=== PATIENT | male | born 1950 | race Caucasian/White ===

== ENCOUNTER 2019-06-24 11:57 | Outpatient (CLI) | payer MEDICARE, SELFPAY | END 2019-06-24 11:58 | disposition home or self-care (01) | LOC: CT 12:01 | PROVIDERS: Family Provider Family Medicine | DX: S46.912A Strain of unspecified muscle, fascia and tendon at shoulder and upper arm level, left arm, initial encounter (principal) ==

== ENCOUNTER → 2021-02-14 11:26 | Outpatient (BNVA) | payer MEDICARE, SELFPAY | PROVIDERS: Family Provider Family Medicine; Visit Provider Nurse Practitioner Family | DX: I10 Essential (primary) hypertension (principal); N40.0 Benign prostatic hyperplasia without lower urinary tract symptoms; E78.2 Mixed hyperlipidemia; Z79.899 Other long term (current) drug therapy | CPT/HCPCS: 80053; 80061; 81003; 82306; 83036; 84443; 85025; G0103 ==

== ENCOUNTER 2021-03-06 09:29 | Outpatient (CLI) | payer MEDICARE, SELFPAY ==
--- NOTE | 2021-03-06 09:31 | CT_ITS ---
WS: [id number] CT HEAD NONCONTRAST HISTORY: R55 - Syncope and collapse TECHNIQUE: Contiguous axial imaging performed through the brain in 2.5 mm imaging. Bone and soft tiss ue windows. Sagittal and coronal reformats reviewed. All CT scans at [facility] use at least one of these dose optimization techniques: automated exposure control; mA and/or kV adjustment per pa tient size (includes targeted exams where dose is matched to clinical indication); or iterative recon struction. DLP: 829.85 mGy.cm COMPARISON: None available. No acute intracranial hemorrhage, midline shift or mass effect. Mild atrophy and minimal chronic microvascular ischemic changes. No sulcal effacement. Ventricles: Normal size with no hydrocephalus. Paranasal sinuses: As visualized are clear. Mastoid air cells: Well pneumatized. Calvarium and scalp: Skull is intact with no soft tissue edema or swelling. CT/CT head wo con* [id number] IMPRESSION: 1. No acute intracranial hemorrhage or edema. 2. Very minimal atrophy and chronic microvascular ischemic disease.
--- NOTE | 2021-03-06 11:45 | USCV_ITS ---
Ethan Pearson Age: 70 Gender: M : 1950 Exam Date: 03/06/2021 09:46 Ordering Phys: Scotty Palomares MD Technologist: Keisha Khalil Exam Location: [facility] [place] Indication: SYNCOPE AND COLLAPSE Risk Factors: Previous Vascular Surgery: Right Brachial BP: / Left Brachial BP: / Right Left Velocity (cm/s) Spectral Plaque Velocity (cm/s) Spectral Plaque Syst/Diast Broadening Syst/Diast Broadening 109.20/19.80 Prox CCA 139.60/ 34.50 117.80/24.80 Mid CCA 133.30/ 32.90 104.00/26.00 Distal CCA 118.00/ 27.60 81.10/ 16.60 Prox ICA 91.50 / 30.20 91.20/ 16.40 Mid ICA 110.00/ 32.00 94.80/ 22.10 Distal ICA 100.40/ 38.40 98.00 ECA 108.10 0.80 ICA/CCA 0.82 Antegrade Vertebral Antegrade 46.70/ 17.10 cm/s 55.50/ 18.30 cm/s Tri Subclavian Tri 90.30 135.0 0 FINDINGS Comparison: none available. No significant elevation of systolic or diastolic velocities. Waveforms are normal. Minimal calcified plaque and intimal thickening identified. Antegrade vertebral arteries. CONCLUSIONS Bilateral ICA stenosis less than 50%. Mild carotid atherosclerosis. Dr. Shama Duron DO (Electronically Signed) Final Date: 06 March 2021 13:12 S
== END 2021-03-06 09:30 | disposition home or self-care (01) ==
LOC: CT 09:30
PROVIDERS: PCP Family Medicine; Visit Provider Family Medicine
DX: R55 Syncope and collapse (principal); I65.23 Occlusion and stenosis of bilateral carotid arteries; I67.82 Cerebral ischemia
CPT/HCPCS: 70450; 93880

== ENCOUNTER → 2021-03-20 09:15 | Outpatient (BNVA) | payer MEDICARE, SELFPAY | PROVIDERS: PCP Family Medicine; Visit Provider Family Medicine | DX: Z01.812 Encounter for preprocedural laboratory examination (principal); R55 Syncope and collapse; Z12.11 Encounter for screening for malignant neoplasm of colon; I25.10 Atherosclerotic heart disease of native coronary artery without angina pectoris; R07.9 Chest pain, unspecified; Z20.822 Contact with and (suspected) exposure to COVID-19 | CPT/HCPCS: 87635 ==

== ENCOUNTER → 2021-04-04 11:15 | Outpatient (BNVA) | payer MEDICARE, SELFPAY | PROVIDERS: PCP Family Medicine; Visit Provider Internal Medicine Cardiovascular Disease | DX: I31.9 Disease of pericardium, unspecified (principal); R07.9 Chest pain, unspecified; R06.02 Shortness of breath; I50.33 Acute on chronic diastolic (congestive) heart failure | CPT/HCPCS: 80048; 83880; 84484 ==

== ENCOUNTER 2021-04-05 08:24 | Outpatient (CLI) | payer MEDICARE, SELFPAY ==
[2021-04-05 09:25] VITALS: BMI 27.3
--- NOTE | 2021-04-05 09:34 | ECG_ITS ---
[facility] Test Date: 2021-04-05 Pat Name: Ethan Pearson Department: Room: Gender: Male Customer Service Advisor: Jovita Muro : 1950 Requested By: Scotty Palomares Order Number: [id number] Tatum MD: Fermín Pham M.D. Interpretive Statements NAME OF STUDY: LEXISCAN SESTAMIBI STRESS TEST INDICATION: [Chest Pain, ] Procedure: At the baseline, the blood pressure was 188/91 mmHg with a heart rate of 75 bpm. The electrocardiogram showed normal sinus rhythm, normal axis with normal ST and T's. The Lexiscan was infused over a period of 20 seconds. A total of 0.4 mg of Lexiscan was infused. The stress phase was continued for a total of 5 minutes. Heart rate was at the end of stress phase was 89 bpm and a blood pressure of 185/70 mmHg. The EKG at the peak infusion revealed since normal sinus rhythm with no significant ST-T wave changes. Sestamibi was injected 20 seconds after the Lexiscan infusion. Blood pressure at the end of recovery phase was 188/56 mmHg with a heart rate of 86 bpm. Conclusion: 1. Normal EKG response to Lexiscan infusion 2. No Lexiscan induced chest pain or cardiac arrhythmia. 3. Normal blood pressure and heart rate response. 4. Sestamibi/sestamibi perfusion scan pending; see separate report. Electronically Signed On 04-29-2021 10:50:50 DIRECTOR OF CONSULTING SERVICES by Fermín Phma M.D. [id number]
--- NOTE | 2021-04-05 09:35 | NMCV_ITS ---
NM cass perf SPECT r/s* [id number] Ethan Pearson Age: 70 Gender: M : 1950 Exam Date: 04/05/2021 10:57 Ordering Phys: Scotty Palomares MD Technologist: KAYLAH Burrows Exam Location: [facility] Indications: CHEST PAIN STRESS TEST [facility] IMAGE PROTOCOL Rest/Stress 1 Lexiscan Day Radiopharmaceutical Dose (mCi) Administration Site Administered by Rest: Tc-99m 11.0 IV KAYLAH Burrows Sestamibi Stress:Tc-99m 32.6 IV KAYLAH Ramirez Sestamibi Rest: 05-Apr-2021 60 Discovery 630 Stress: 05-Apr-2021 30 Discovery 630 0.4mg Lexiscan. Images obtained in supine and prone position. SPECT RESULTS Technical Quality: Excellent Raw Data Analysis: Normal Image Corrections: No attenuation or motion correction applied Summed Stress Score: 1 Summed Rest Score: 1 Summed Difference Score: 1 PERFUSION FINDINGS SPECT images demonstrate homogeneous tracer distribution throughout the myocardium. FUNCTIONAL RESULTS (calculated via Gated SPECT) Stress Image LV EF (%): 87 Stress EDV (mL):75 TID: 0.95 Stress ESV (mL):10 FUNCTIONAL FINDINGS: There is normal left ventricular systolic function. IMPRESSIONS 1. Normal myocardial perfusion imaging with no evidence of ischemia 2. LV systolic function is normal Fermín Pham MD (Electronically Signed) Final Date: 05 April 2021 16:27 S
[2021-04-05] MEDS: regadenoson 0.4 Mg/5 ml Syringe IVP (11:59)
[2021-04-05 12:00] VITALS: PULSE 100
== END 2021-04-05 08:25 | disposition home or self-care (01) ==
LOC: CDL 08:28
PROVIDERS: PCP Family Medicine; Visit Provider Family Medicine
DX: R07.9 Chest pain, unspecified (principal); I25.10 Atherosclerotic heart disease of native coronary artery without angina pectoris
CPT/HCPCS: 78452; 93017; A9500; J2785

== ENCOUNTER 2021-04-26 07:55 | Outpatient (CLI) | payer MEDICARE, SELFPAY ==
--- NOTE | 2021-04-26 08:03 | USCV_ITS ---
Rk Pearsonard Age: 70 Gender: M : 1950 Exam Date: 04/26/2021 08:20 Ordering Phys: Claire Ignacio MD ([email or web address]) Technologist: Kaity Santoyo Exam Location: [facility] [place] Indication: CHEST PAIN BP: 146 / 66 HR: 68 Rhythm: Sinus Technical Quality: Good MEASUREMENTS (Male / Female) Normal Values 2D ECHO LV Diastolic Diameter PLAX 4.0 cm 4.2 - 5.9 / 3.9 - 5.3 cm LV Systolic Diameter PLAX 2.3 cm IVS Diastolic Thickness 1.6 cm 0.6 - 1.0 / 0.6 - 0.9 cm IVS Systolic Thickness 1.8 cm LVPW Diastolic Thickness 1.0 cm 0.6 - 1.0 / 0.6 - 0.9 cm LVPW Systolic Thickness 1.6 cm LVOT Diameter 2.0 cm LV Ejection Fraction 2D Teich 73.9 % LV Ejection Fraction MOD 2C 83.2 % LV Ejection Fraction 2C AL 84.6 % LA Diameter 2.6 cm LA Width 3.2 cm LA Height 4.6 cm RA Width 3.4 cm RA Height 4.3 cm Aorta at Sinotubular Diameter 2.9 cm DOPPLER AV Peak Velocity 126.0 cm/s LVOT Peak Velocity 97.0 cm/s AV Area Cont Eq vti 2.8 cm squared AV Area Cont Eq pk 2.4 cm squared MV Peak Velocity 111.0 cm/s MV Area PHT 3.4 cm squared Mitral E to A Ratio 0.8 MV E' Velocity 32.6 cm/s Mitral E to MV E' Ratio 9.9 Mitral E to LV E' Lateral Ratio 8.8 Mitral E to LV E' Septal Ratio 11.6 TR Peak Velocity 183.0 cm/s TR Peak Gradient 13.4 mmHg Right Atrial Pressure 3.0 mmHg Pulmonary Artery Systolic Pressu 16.4 mmHg PV Peak Velocity 91.0 cm/s RV Acceleration Time 0.1 s RV Ejection Time 0.3 s RV AcT/ET 0.4 FINDINGS Left Ventricle Normal left ventricular size and systolic function, EF 83 %. No regional wall motion abnormalities. Grade I/IV diastolic dysfunction (abnormal relaxation filling pattern), normal to mildly elevated filling pressures. Right Ventricle The right ventricle is normal in size and function. Right Atrium The right atrium is normal in size. Left Atrium The left atrium is normal in size. Mitral Valve Mild mitral valve regurgitation. Aortic Valve Minimally thickened aortic valve Tricuspid Valve Trace tricuspid valve regurgitation. Pulmonic Valve No gross abnormalities noted Pericardium Normal pericardium without effusion. Aorta Normal ascending aorta dimension. CONCLUSIONS Normal left ventricular size and systolic function, EF74 %. No regional wall motion abnormalities. Grade I/IV diastolic dysfunction (abnormal relaxation filling pattern), normal to mildly elevated filling pressures. Minimally thickened aortic valve. Trace tricuspid valve regurgitation. Mild mitral valve regurgitation. Pulmonary artery peak systolic pressure of 16 mmHg There is no pericardial effusion. There are no intracardiac masses. No previous study is available for comparison. Dr Claire Ignacio MD FAC (Electronically Signed) Final Date: 29 April 2021 09:09 S
== END 2021-04-26 07:56 | disposition home or self-care (01) ==
LOC: RAD 07:59
PROVIDERS: PCP Family Medicine; Visit Provider Family Medicine
DX: I25.10 Atherosclerotic heart disease of native coronary artery without angina pectoris (principal); R07.9 Chest pain, unspecified; I08.3 Combined rheumatic disorders of mitral, aortic and tricuspid valves
CPT/HCPCS: 93306

== ENCOUNTER → 2021-06-25 09:25 | Outpatient (BNVA) | payer SELFPAY | PROVIDERS: PCP Family Medicine; Visit Provider Family Medicine | DX: R53.81 Other malaise (principal); R06.02 Shortness of breath | CPT/HCPCS: 87400 ==

== ENCOUNTER → 2021-07-11 09:00 | Outpatient (BNVA) | payer MEDICARE, SELFPAY | PROVIDERS: PCP Family Medicine; Referring Provider Internal Medicine Cardiovascular Disease; Visit Provider Internal Medicine Cardiovascular Disease | DX: I25.10 Atherosclerotic heart disease of native coronary artery without angina pectoris (principal); R06.02 Shortness of breath; R07.89 Other chest pain; Z20.822 Contact with and (suspected) exposure to COVID-19 | CPT/HCPCS: 80048; 85025; 85610; 86850; 86900; 87635 ==

== ENCOUNTER 2021-07-17 05:44 | Outpatient (CLI) | payer MEDICARE, SELFPAY ==
[2021-07-17] VITALS (16 sets, daily range): BP systolic 123–161; BP diastolic 58–87; PULSE 69–87; RESP 12–20; TEMP 36.8; O2SAT 94–100; BMI 28.5
--- NOTE | 2021-07-17 06:00 | XACV_ITS ---
Ht: 170 cm Wt: 83 kg BSA: 2.00 m2 Gender: Male : 1950 Any Known Allergies: Other Exam Priority: Routine Procedure(s): Procedure Description: Diagnostic procedure Procedure Description: Left Heart Catheterization Procedure Description: Left ventriculography Procedure Description: Coronary Angiography Mateus MANUEL; Diagnostic Cath Status: Elective Diagnostic Findings * Coronary angiography shows right dominance. * Left main is a medium caliber vessel with some minimal intimal regularities. No significant stenotic lesions were noted. * The left tender descending artery is a medium caliber vessel which appears to taper off to his the LV apex. The proximal and the mid LAD was found to have patent stented segment. The distal LAD was found to have minimal diffuse intimal irregularities. The artery gives off a high diagonal branch which was of equal caliber as of the LAD. No significant stenotic lesions were noted.. * The left circumflex artery is a medium caliber vessel which appears to bifurcate proximally. No Symond is noted lesions are seen. The artery appears to be nondominant. * The right coronary artery is a medium to large caliber vessel, dominant, with no significant stenotic lesions. Conclusions 1. This is a 70-year-old white male with a history of coronary disease, status post PCI, presenting with increasing episodes of chest pain. He had a myocardial perfusion imaging was essentially unremarkable. Because of worsening of his symptoms, in order to further evaluate the coronary status, a repeat a cardiac catheterization was recommended. Patient underwent left heart catheterization with left and right coronary angiogram and LV angiogram today. The findings are as follows. 2. Patent stented segment of the proximal and mid LAD. Minimal intimal irregularities in the other vessels. No significant stenotic lesions. Features of left ventricular diastolic function with LVEDP of 19 mmHg. The LV ejection fraction estimated to be 50%. Mild hypokinesis anteroapical segment was noted.. Recommendations * Continue current medical management and risk factor modification. Diagnostic RX Recommendation: medical therapy and/or counseling LV EDP: 19 mmHg Ventriculography Ejection Fraction: 50.0 % Left Ventriculography Findings: * LV gram was performed in the HADLEY position. The LV cavity appears to be of normal size. The study was of suboptimal quality because of the poor LV filling. There is mild hypokinesis of the anteroapical region. The LVEDP was 19 mmHg. Pressures Phase:Rest AO : 120 / 66 ( 88 ) @ 5:30:00 AM 96 / 70 ( 85 ) @ 5:30:00 AM 100 / 74 ( 88 ) @ 5:33:00 AM 115 / 87 ( 102 ) @ 5:39:00 AM 144 / 42 ( 93 ) @ 5:48:00 AM 141 / 46 ( 92 ) @ 5:48:00 AM LV : 145 / -5 / 13 @ 5:46:00 AM 146 / -10 / 19 @ 5:48:00 AM 136 / -9 / 20 @ 5:48:00 AM Valves Phase:DefaultPhase AV : 0.0 @ 7:54:03 AM AV Mean Gradient: 0.0 @ 7:54:03 AM Clinical Evaluation EBL: 5mL-10mL Procedural Details Pre-Procedure Time Out. Identified patient by full name and date of as verbalized by the patient/guarantor. Does the consent match the physician's order: Yes. Accurate & Complete Informed Consent: Yes. Inpatient/Outpatient History & Physical on Chart: Yes. If H&P is completed, is and addenduem needed: No; If yes, is the addendum complete: N/A. Visualize and Verify Site with Patient/Guarantor: N/A. Relevant Radiology Images available: Yes. Pre-op teaching completed and patient verbalized understanding. The risks, benefits, and alternatives of sedation and/or procedure were discussed by physician. The patient agrees to continue. Procedure started. [facility] Clinical Fraility Score: 3: Managing Well. 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 Chest Pain Symptom Assessment: Atypical Angina. Correct patient, site and procedure confirmed by cath team. Current diagnosis: Chest Pain. PERRLA. 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 Lungs clear x 5 lobes. IV Site on Arrival: 20 gauge in the left anticubital. IV Fluids: 0.9% NaCl at KVO. 0 mL infused prior to cardiovascular lab director. Pre Procedural Pulses: bilateral dorsalis pedis was 3+. Pre Procedural Pulses: bilateral posterior tibial was 1+. Pre Procedural Pulses: bilateral radial was 3+. Oxygen started at 2liters/min via nasal canula. right groin was prepped with chloroprep then draped in the usual sterile fashion. right radial was prepped with chloroprep then draped in the usual sterile fashion. Physician notified. Baseline sample Acquired. HR: 75 BPM. Physician arrived. Physician scrubbed in. Immediate Pre-Procedure Time Out. Correct Patient: Yes; Correct Procedure: Yes; Correct Site: Yes; Correct Patient Position: Yes; Correct Supplies: Yes; Dried Flammable Prep: Yes; Blood Products Available: N/A;. Lidocaine 1% infiltrated to the right radial. Arterial access obtained. A 5 kiswahili Fabiano catheter in over wire. Multiple views taken of left coronary artery. Catheter redirected to the RCA. Catheter removed over the glide wire. A 5 kiswahili JR4 catheter in over wire. Glidewire out. Standard J wire inserted. Multiple views taken of right coronary artery. Catheter removed over the glide wire. A 5 kiswahili Angled Pig catheter in over wire. EDP Sample taken: LV 145/-6,13; HR: 74 BPM; SpO2: 99%. LV gram performed in HADLEY @ 10 mL/second for a total of 30 mL. EDP Sample taken: LV 146/-11,19; HR: 77 BPM; SpO2: 98%. Pullback taken: LV 136/-10,20; AO 144/42(93); Mean: 0mmHg, Peak to Peak: 0mmHg, SEP: 26sec/min; HR: 80 BPM; SpO2: 99%. Catheter removed over the standard wire. Physician scrubbed out. A TR Band was successful obtaining hemostatsis at the Right Radial artery insertion site. Post Procedure: Pulses reassessed and unchanged. PERRLA. 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 No VTE prophylaxis required. Medication's Wasted: Heparin = 1000 units. Medication's Wasted: Nitro = 49.8 mg. Medication's Wasted: Lidocaine 1% = 18 mL. Total IV fluids: 100 mL. Contrast type used: Visipaque 320 mgI/mL, 500 mL bottle. Complications: None. Estimated blood loss: 5mL-10mL. Responsiveness - Normal response to verbal stimuli; alert and oriented, PERRLA. Airway - Unaffected, no intervention required; spontaneous ventilation. Circulation: W/N/L, pulses unchanged. Nausea/Vomiting: No. Procedure completed. Patient transferred by wheelchair to CPRU. Vital chart was stopped. Access Site Site: Right Radial artery Sheath Size: 6 Fr Hemostasis Method: TR Band Hemostasis Success: Successful Procedure Medications Start: 7:19 AM Stop: 7:19 AM Medication: Versed Amount: 1 mg Route: I.V. Start: 7:19 AM Stop: 7:19 AM Medication: Fentanyl Amount: 50 mcg Start: 7:25 AM Stop: 7:25 AM Medication: Verapamil Amount: 5 mg Route: I.A. Start: 7:25 AM Stop: 7:25 AM Medication: Nitrogylcerin Amount: 200 mcg Route: I.A. Start: 7:27 AM Stop: 7:27 AM Medication: Versed Amount: 1 mg Route: I.V. Start: 7:27 AM Stop: 7:27 AM Medication: Fentanyl Amount: 50 mcg Start: 7:33 AM Stop: 7:33 AM Medication: Versed Amount: 1 mg Route: I.V. Start: 7:38 AM Stop: 7:38 AM Medication: Versed Amount: 1 mg Route: I.V. Start: 7:41 AM Stop: 7:41 AM Medication: Heparin Amount: 5000 units Route: I.V. I, the attending physician, have reviewed and verified all procedure medications. Yes, all medications given per verbal order History/Risk Factors Hypertension: Yes Dyslipidemia: Yes Peripheral Arterial Disease (PAD): No Myocardial Infarction (ID): No Obesity: No Renal Disease: No Prior Interventions PCI: Yes CABG: No Valve Surgery: No Report Signatures Finalized by Dr Claire Ignacio MD [facility] on 07/19/2021 12:25 AM
[2021-07-17] MEDS: diphenhydrAMINE 50 mg Capsule PO (06:23)
--- NOTE | 2021-07-17 07:09 | W.PM.OPSUD ---
Surgery/Procedure H&P Update DATE OF PROCEDURE: July 17, 2021 DATE H&P PERFORMED: 07/09/21 CHANGES TO PREVIOUS DOCUMENTATION: None PREOP DIAGNOSIS: ASHD PRIMARY INDICATION FOR PROCEDURE: Patient with increasing episodes of chest pains, previous history of ASHD and PCI. Multiple risk factors PLANNED PROCEDURE: Operation Date: 07/17/21 07:00 Proposed Procedures p Cardiac Catheterization(Left) - Claire Ignacio MD PHYSICAL EXAM: alert, oriented x 3, clear to auscultation bilaterally and regular rate & rhythm AIRWAY EVAL/ANESTHESIA PLAN: normal airway, see other exam findings, ASA III, Monitored Anesthesia, Local Anesthesia, Risks, benefits & alternatives of sedation and/or procedure discussed and Patient agrees to continue as planned
--- NOTE | 2021-07-17 08:00 | PC.NURSE ---
Received patient from industrial laborer to CPRU 3. Pt alert and oriented, breathing even and non-labored. No reports of pain. TR band to right radial contaning 15ml air. Radial pulse palpable, no signs of bleeding or hematoma.
--- NOTE | 2021-07-17 09:13 | PC.NURSE ---
2ml air removed from TR band. Site asymptomatic. Will continue to monitor.
--- NOTE | 2021-07-17 09:23 | PC.NURSE ---
2ml air removed from right radial TR band. Site asymptomatic. Will continue to monitor.
--- NOTE | 2021-07-17 09:45 | PC.NURSE ---
3ml air removed from right radial TR band. Site asymptomatic. Will continue to monitor.
--- NOTE | 2021-07-17 10:00 | PC.NURSE ---
TR band deflated and off. No signs of bleeding or hematoma noted.
--- NOTE | 2021-07-17 10:06 | PC.NURSE ---
3ml air removed from TR band. Site asymptomatic. Will continue to monitor.
--- NOTE | 2021-07-17 10:15 | PC.NURSE ---
3ml air moved from TR band. site asymptomatic. will continue to monitor.
--- NOTE | 2021-07-17 10:20 | PC.NURSE ---
remaining 2ml air removed from TR band. Site asymptomatic.
== END 2021-07-17 11:58 | disposition home or self-care (01) ==
PROVIDERS: PCP Family Medicine; Visit Provider Internal Medicine Cardiovascular Disease
DX: I25.118 Atherosclerotic heart disease of native coronary artery with other forms of angina pectoris (principal); I10 Essential (primary) hypertension; E78.5 Hyperlipidemia, unspecified; E78.2 Mixed hyperlipidemia; F41.9 Anxiety disorder, unspecified; N40.0 Benign prostatic hyperplasia without lower urinary tract symptoms; Z79.82 Long term (current) use of aspirin; K21.9 Gastro-esophageal reflux disease without esophagitis; Z82.49 Family history of ischemic heart disease and other diseases of the circulatory system; Z82.3 Family history of stroke
CPT/HCPCS: 36415; 93452; 93458; C1769; C1887; C1894; J1644; J2250; J3010; J3490; J7030; Q0163; Q9967

== ENCOUNTER → 2021-07-22 10:20 | Outpatient (BNVA) | payer MEDICARE, SELFPAY | PROVIDERS: PCP Family Medicine; Visit Provider Nurse Practitioner Family | DX: R07.89 Other chest pain (principal); I25.10 Atherosclerotic heart disease of native coronary artery without angina pectoris | CPT/HCPCS: 80048 ==

== ENCOUNTER → 2022-07-02 08:09 | Outpatient (BNVA) | payer MEDICARE, SELFPAY | PROVIDERS: PCP Family Medicine; Visit Provider Internal Medicine Cardiovascular Disease | DX: R53.83 Other fatigue (principal); I25.10 Atherosclerotic heart disease of native coronary artery without angina pectoris; I10 Essential (primary) hypertension; E78.2 Mixed hyperlipidemia; Z79.899 Other long term (current) drug therapy | CPT/HCPCS: 80053; 80061; 83036; 84443; 85025 ==

== ENCOUNTER → 2022-10-17 09:20 | Outpatient (BNVA) | payer MEDICARE, SELFPAY | PROVIDERS: PCP Family Medicine; Visit Provider Family Medicine | DX: D64.9 Anemia, unspecified (principal); A08.4 Viral intestinal infection, unspecified | CPT/HCPCS: 82728; 83540; 83550; 85025 ==

== ENCOUNTER → 2022-11-19 09:39 | Outpatient (BNVA) | payer MEDICARE, SELFPAY | PROVIDERS: PCP Family Medicine; Visit Provider Family Medicine | DX: D64.9 Anemia, unspecified (principal); A08.4 Viral intestinal infection, unspecified; G43.909 Migraine, unspecified, not intractable, without status migrainosus; K57.92 Diverticulitis of intestine, part unspecified, without perforation or abscess without bleeding | CPT/HCPCS: 82728; 83540; 85025 ==

== ENCOUNTER → 2023-08-12 10:16 | Outpatient (BNVA) | payer MEDICARE, SELFPAY | PROVIDERS: PCP Family Medicine; Visit Provider Surgery | DX: Z12.11 Encounter for screening for malignant neoplasm of colon (principal); R19.5 Other fecal abnormalities | CPT/HCPCS: 99203 ==